=== PATIENT | female | born 1990 | race Caucasian/White ===

== ENCOUNTER 2019-11-12 08:07 | Emergency (ER) | payer BC ==
--- NOTE | 2019-11-12 08:43 | EDM.PDOC ---
ED HPI GENERAL MEDICAL PROBLEM - General Chief Complaint: Genitourinary Problem Stated Complaint: PAIN AROUND KIDNEYS Time Seen by Provider: 11/12/19 08:14 Source of Information: Reports: Patient - History of Present Illness INITIAL COMMENTS - FREE TEXT/NARRATIVE: 28-year-old female with no significant past history who is presenting with 2 days of dysuria, hematuria that is now resolved associated with mild bilateral flank ache though this is also improved today. Patient symptoms started 2 days ago with hematuria she started to take [id number] Azo and the hematuria resolved. Symptoms were associated with some mild lower abdominal cramping as well. Patient now presents today secondary to nausea and urinary frequency. She does have a history of suspected UTI in the past he was most recently treated for this in September with a short course of antibiotics. However at that time no urinalysis was performed it was prescribed via telemedicine. Patient has no history of antibiotic allergies. She has no history of antibiotic exposure beyond that short course in September. No history of abdominal surgeries. She has had a few other urinary tract infections. Symptoms are without clear exacerbating or alleviating factors radiation or other associated symptoms. back Pain Score (Numeric/FACES): 3 - Related Data Allergies Allergy/AdvReac Type Severity Reaction Status Date / Time anesthesia Allergy Anaphylactic Uncoded 11/12/19 08:23 Shock Home Meds: Home Meds Control 11/12/19 [History] Cetirizine [ZyrTEC] 10 mg PO DAILY 11/12/19 [History] Citalopram [Citalopram HBr] 20 mg PO DAILY 11/12/19 [History] clonazePAM [Clonazepam] 0.125 mg PO DAILY PRN 11/12/19 [History] Past Medical History HEENT History: Reports: Impaired Vision, Other (See Below) Other HEENT History: wears glasses Cardiovascular History: Reports: Hypertension, Other (See Below) Other Cardiovascular History: pt states "i was given anti-anxiety medication for my blood pressure", states she is not on anti-HTN Genitourinary History: Reports: UTI, Recurrent Psychiatric History: Reports: Anxiety, Depression - Infectious Disease History Infectious Disease History: Reports: Chicken Pox - Past Surgical History HEENT Surgical History: Reports: Adenoidectomy, Tonsillectomy, Other (See Below) Other HEENT Surgeries/Procedures: nasal reconstruction Cardiovascular Surgical History: Reports: None Female Surgical History: Reports: None Social & Family History - Family History Family Medical History: Noncontributory - Tobacco Use Smoking Status *Q: Never Smoker Second Hand Smoke Exposure: No - Caffeine Use Caffeine Use: Reports: Coffee - Recreational Drug Use Recreational Drug Use: Yes Recreational Drug Type: Reports: Marijuana/Hashish Recreational Drug Use Frequency: Socially ED ROS GENERAL - Review of Systems Review Of Systems: See Below Free Text/Narrative/Comment: General: No fever. Skin: No rash. Eyes: No vision problems. ENT: No sore throat. Neck: No neck stiffness. Respiratory: No shortness of breath. Cardiac: No chest pain. Gastrointestinal: + nausea, vomiting or abdominal pain. Urinary: Per HPI. Musculoskeletal: No myalgias/arthralgias. Neurologic: No headache. ED EXAM, GENERAL - Physical Exam Exam: See Below Free Text/Narrative:: General Appearance: No acute distress, appears comfortable Skin: No rash HEENT: Normocephalic/atraumatic, sclera anicteric, mucous membranes moist Neck: Normal range of motion Chest and Lungs: Bilateral breath sounds, clear to auscultation Cardiovascular: Regular rate and rhythm, no murmur Abdomen: Soft, non-tender Back: No CVA tenderness Musculoskeletal: No edema or tenderness Neurologic: Awake, alert, no obvious deficits, moving all extremities Psychiatric: Appropriate, cooperative Course - Vital Signs Last Recorded V/S: Last Vital Signs Temp 96.5 F L 11/12/19 08:20 Pulse 72 11/12/19 10:14 Resp 16 11/12/19 10:14 BP 157/106 H 11/12/19 10:14 Pulse Ox 96 11/12/19 10:14 - Orders/Labs/Meds Labs: Laboratory Tests 11/12/19 11/12/19 11/12/19 Range/Units 08:55 08:55 09:35 WBC 9.23 (4.0-11.0) K/uL RBC 4.61 (4.30-5.90) M/uL Hgb 13.7 (12.0-16.0) g/dL Hct 42.4 (36.0-46.0) % MCV 92.0 (80.0-98.0) fL MCH 29.7 (27.0-32.0) pg MCHC 32.3 (31.0-37.0) g/dL RDW Std Deviation 42.0 (28.0-62.0) fl RDW Coeff of Willie 13 (11.0-15.0) % Plt Count 280 (150-400) K/uL MPV 9.10 (7.40-12.00) fL Neut % (Auto) 63.3 (48.0-80.0) % Lymph % (Auto) 25.1 (16.0-40.0) % Addison % (Auto) 10.0 (0.0-15.0) % Eos % (Auto) 1.5 (0.0-7.0) % Baso % (Auto) 0.1 (0.0-1.5) % Neut # (Auto) 5.8 H (1.4-5.7) K/uL Lymph # (Auto) 2.3 (0.6-2.4) K/uL Addison # (Auto) 0.9 H (0.0-0.8) K/uL Eos # (Auto) 0.1 (0.0-0.7) K/uL Baso # (Auto) 0.0 (0.0-0.1) K/uL Nucleated RBC % 0.0 /100WBC Nucleated RBCs # 0 K/uL Sodium 137 (136-145) mmol/L Potassium 3.9 (3.5-5.1) mmol/L Chloride 100 (98-107) mmol/L Carbon Dioxide 25.6 (21.0-32.0) mmol/L BUN 10 (7.0-18.0) mg/dL Creatinine 0.9 (0.6-1.0) mg/dL Est Cr Clr Drug Dosing 85.24 mL/min Estimated GFR (MDRD) > 60.0 ml/min Glucose 92 (74-106) mg/dL Calcium 9.3 (8.5-10.1) mg/dL Urine Color YELLOW Urine Appearance SLT CLOUDY Urine pH 6.5 (5.0-8.0) Ur Specific [place] 1.010 (1.001-1.035) Urine Protein NEGATIVE (NEGATIVE) mg/dL Urine Glucose (UA) NEGATIVE (NEGATIVE) mg/dL Urine Ketones NEGATIVE (NEGATIVE) mg/dL Urine Occult Blood MODERATE H (NEGATIVE) Urine Nitrite POSITIVE H (NEGATIVE) Urine Bilirubin NEGATIVE (NEGATIVE) Urine Urobilinogen 0.2 (<2.0) EU/dL Ur Leukocyte Esterase LARGE H (NEGATIVE) Urine RBC 2-4 (0-2/HPF) Urine WBC 20-30 (0-5/HPF) Ur Epithelial Cells MODERATE (NONE-FEW) Urine Bacteria 1+ H (NEGATIVE) Urine HCG, Qual (NEGATIVE) 11/12/19 Range/Units 09:35 WBC (4.0-11.0) K/uL RBC (4.30-5.90) M/uL Hgb (12.0-16.0) g/dL Hct (36.0-46.0) % MCV (80.0-98.0) fL MCH (27.0-32.0) pg MCHC (31.0-37.0) g/dL RDW Std Deviation (28.0-62.0) fl RDW Coeff of Willie (11.0-15.0) % Plt Count (150-400) K/uL MPV (7.40-12.00) fL Neut % (Auto) (48.0-80.0) % Lymph % (Auto) (16.0-40.0) % Addison % (Auto) (0.0-15.0) % Eos % (Auto) (0.0-7.0) % Baso % (Auto) (0.0-1.5) % Neut # (Auto) (1.4-5.7) K/uL Lymph # (Auto) (0.6-2.4) K/uL Addison # (Auto) (0.0-0.8) K/uL Eos # (Auto) (0.0-0.7) K/uL Baso # (Auto) (0.0-0.1) K/uL Nucleated RBC % /100WBC Nucleated RBCs # K/uL Sodium (136-145) mmol/L Potassium (3.5-5.1) mmol/L Chloride (98-107) mmol/L Carbon Dioxide (21.0-32.0) mmol/L BUN (7.0-18.0) mg/dL Creatinine (0.6-1.0) mg/dL Est Cr Clr Drug Dosing mL/min Estimated GFR (MDRD) ml/min Glucose (74-106) mg/dL Calcium (8.5-10.1) mg/dL Urine Color Urine Appearance Urine pH (5.0-8.0) Ur Specific [place] (1.001-1.035) Urine Protein (NEGATIVE) mg/dL Urine Glucose (UA) (NEGATIVE) mg/dL Urine Ketones (NEGATIVE) mg/dL Urine Occult Blood (NEGATIVE) Urine Nitrite (NEGATIVE) Urine Bilirubin (NEGATIVE) Urine Urobilinogen (<2.0) EU/dL Ur Leukocyte Esterase (NEGATIVE) Urine RBC (0-2/HPF) Urine WBC (0-5/HPF) Ur Epithelial Cells (NONE-FEW) Urine Bacteria (NEGATIVE) Urine HCG, Qual NEGATIVE (NEGATIVE) Departure - Departure Time of Disposition: 10:18 Disposition: Home, Self-Care 01 Condition: Good Clinical Impression: UTI, Urinary tract infectious disease - Discharge Information *PRESCRIPTION DRUG MONITORING PROGRAM REVIEWED*: Not Applicable *COPY OF PRESCRIPTION DRUG MONITORING REPORT IN PATIENT [place]: Not Applicable Instructions: Urinary Tract Infection, Adult, [id number] Referrals: Gilson Levi MD [Primary Care Provider] - Forms: ED Department Discharge Additional Instructions: You should feel better in the next 48 hours. If you develop a fever or worsening symptoms please call your doctor or return to the emergency room. The following information is given to patients seen in the emergency department who are being discharged to home. This information is to outline your options for follow-up care. We provide all patients seen in our emergency department with a follow-up referral. The need for follow-up, as well as the timing and circumstances, are variable depending upon the specifics of your emergency department visit. If you don't have a primary care physician on staff, we will provide you with a referral. We always advise you to contact your personal physician following an emergency department visit to inform them of the circumstance of the visit and for follow-up with them and/or the need for any referrals to a consulting specialist. The emergency department will also refer you to a specialist when appropriate. This referral assures that you have the opportunity for follow-up care with a specialist. All of these measure are taken in an effort to provide you with optimal care, which includes your follow-up. Under all circumstances we always encourage you to contact your private physician who remains a resource for coordinating your care. When calling for follow-up care, please make the office aware that this follow-up is from your recent emergency room visit. If for any reason you are refused follow-up, please contact the [facility] Emergency Department at and asked to speak to the emergency department charge nurse. Sepsis Event Note (ED) - Evaluation Sepsis Screening Result: No Definite Risk - Focused Exam Vital Signs: Vital Signs Temp Pulse Resp BP Pulse Ox 11/12/19 10:14 72 16 157/106 H 96 11/12/19 08:20 96.5 F L 107 H 17 152/112 H 98 - Assessment/Plan Assessment:: 28-year-old female presenting with signs and symptoms are most consistent with UTI. Gynecologic pathology considered but no vaginal bleeding or discharge. No tenderness on exam that would suggest appendicitis or diverticulitis. No CVA tenderness. Pyelonephritis considered given the nausea and other symptoms as well as the minimal tachycardia. For this reason CBC and BMP ordered. If significant abnormalities are noted then would treat with pyelonephritis course of antibiotics. Urine pending as well. Other etiologies considered as well. Patient's urinalysis is clearly infected. However, white blood cell count is normal kidney function normal no signs of Pramod on vitals or labs. Given this would treat as a urinary tract infection with Keflex 1 g twice daily 5-day prescription added[facility] given that is 11 November.
[2019-11-12 09:14] LABS: BLOOD UREA NITROGEN,BUN 10 mg/dL (7.0-18.0); CARBON DIOXIDE,CO2 25.6 mmol/L (21.0-32.0); CHLORIDE,CL 100 mmol/L (98-107); GLUCOSE RANDOM 92 mg/dL (74-106); POTASSIUM,K 3.9 mmol/L (3.5-5.1); SODIUM,NA 137 mmol/L (136-145)
== END 2019-11-12 10:29 | disposition home or self-care (01) ==
LOC: MW.ED 08:07
DX: N39.0 Urinary tract infection, site not specified (principal); I10 Essential (primary) hypertension; F41.9 Anxiety disorder, unspecified; F32.9 Major depressive disorder, single episode, unspecified; Z79.899 Other long term (current) drug therapy; Z88.4 Allergy status to anesthetic agent
CPT/HCPCS: 36415; 80048; 81001; 81025; 85025; 99282; 99284

== ENCOUNTER 2024-04-19 23:37 | Emergency (ER) | payer BC, OTHER ==
[2024-04-20 00:01] LABS: BILIRUBIN,URINE NEGATIVE (NEGATIVE); GLUCOSE,URINE NEGATIVE (NEGATIVE); KETONES,URINE TRACE mg/dL (NEGATIVE); LEUKOCYTE ESTERASE,URINE NEGATIVE (NEGATIVE); NITRITE,URINE NEGATIVE (NEGATIVE); OCCULT BLOOD,URINE TRACE-INTACT (NEGATIVE); PROTEIN,URINE 30 mg/dL (NEGATIVE); UROBILINOGEN,URINE 0.2 EU/dL (<2.0)
[2024-04-20 00:02] LABS: APPEARANCE,URINE HAZY; COLOR,URINE YELLOW
[2024-04-20 00:13] LABS: BACTERIA,URINE FEW (NEGATIVE); MUCUS,URINE MODERATE (NONE-MOD); SQUAMOUS EPITHELIAL CELLS,UR MODERATE
[2024-04-20] MEDS: Cephalexin 500 MG Cap PO ONE (01:05)
== END 2024-04-20 01:46 | disposition home or self-care (01) ==
LOC: MW.ED 23:37
DX: N39.0 Urinary tract infection, site not specified (principal); I10 Essential (primary) hypertension; Z90.89 Acquired absence of other organs; Z88.4 Allergy status to anesthetic agent; Z79.84 Long term (current) use of oral hypoglycemic drugs; Z79.899 Other long term (current) drug therapy; Z75.8 Other problems related to medical facilities and other health care
CPT/HCPCS: 81001; 81025; 87086; 99283; A9270; 99284